=== PATIENT | male | born 1995 | race Caucasian/White ===

== ENCOUNTER 2019-02-09 14:10 | Emergency (ER) | payer BC ==
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
== END 2019-02-09 15:07 | disposition home or self-care (01) ==
LOC: BURERS 14:10
DX: S93.401A Sprain of unspecified ligament of right ankle, initial encounter (principal); F17.210 Nicotine dependence, cigarettes, uncomplicated; X50.9XXA Other and unspecified overexertion or strenuous movements or postures, initial encounter

== ENCOUNTER 2020-05-31 11:37 | Outpatient (CLI) | payer BC ==
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
== END 2020-05-31 11:38 | disposition home or self-care (01) ==
LOC: BURRAD 11:37
PROVIDERS: ATTEND Neurological Surgery
DX: S32.059A Unspecified fracture of fifth lumbar vertebra, initial encounter for closed fracture (principal)
CPT/HCPCS: 72100

== ENCOUNTER 2021-08-06 13:57 | Emergency (ER) | payer BC, OTHER ==
[2021-08-06] MEDS ORDERED: methylPREDNISolone Sod Succ/PF 125 MG/2 ML VIAL ONE (15:45)
[2021-08-06] MEDS ORDERED: hydrOXYzine 25 MG TAB ONE (15:45)
[2021-08-06] MEDS ORDERED: Famotidine 20 MG TAB ONE (15:45)
== END 2021-08-06 16:20 | disposition home or self-care (01) ==
LOC: BURERS 13:57
DX: L25.9 Unspecified contact dermatitis, unspecified cause (principal); I10 Essential (primary) hypertension; F17.220 Nicotine dependence, chewing tobacco, uncomplicated
CPT/HCPCS: 96374; J2930

== ENCOUNTER 2022-02-11 09:24 | Emergency (ER) | payer OTHER, BC | END 2022-02-11 09:37 | disposition left against medical advice (07) | LOC: BURERS 09:24 | DX: S00.31XA Abrasion of nose, initial encounter (principal); X58.XXXA Exposure to other specified factors, initial encounter | CPT/HCPCS: 99282 ==

== ENCOUNTER 2022-02-16 10:21 | Emergency (ER) | payer OTHER, BC ==
[2022-02-16] MEDS ORDERED: Bacitracin 1 PK ONE (11:38)
== END 2022-02-16 11:43 | disposition home or self-care (01) ==
LOC: BURERS 10:21
DX: S90.512A Abrasion, left ankle, initial encounter (principal); I10 Essential (primary) hypertension; F17.210 Nicotine dependence, cigarettes, uncomplicated; W19.XXXA Unspecified fall, initial encounter
CPT/HCPCS: 99282

== ENCOUNTER 2022-02-25 16:22 | Emergency (ER) | payer OTHER, BC ==
[2022-02-25] MEDS ORDERED: Cephalexin 250 MG CAP ONE (16:42)
== END 2022-02-25 16:43 | disposition home or self-care (01) ==
LOC: BURERS 16:22
DX: S91.312A Laceration without foreign body, left foot, initial encounter (principal); I10 Essential (primary) hypertension; F17.210 Nicotine dependence, cigarettes, uncomplicated; X58.XXXA Exposure to other specified factors, initial encounter
CPT/HCPCS: 99282

== ENCOUNTER 2024-12-09 11:56 | Emergency (ER) | payer BC, OTHER | END 2024-12-09 14:07 | disposition home or self-care (01) | LOC: BURERS 11:56 | DX: S93.402A Sprain of unspecified ligament of left ankle, initial encounter (principal); S90.32XA Contusion of left foot, initial encounter; I10 Essential (primary) hypertension; F17.210 Nicotine dependence, cigarettes, uncomplicated; W19.XXXA Unspecified fall, initial encounter; Y93.89 Activity, other specified | CPT/HCPCS: 99283 ==